=== PATIENT | female | born 1970 | race Caucasian/White ===

== ENCOUNTER → 2021-08-17 09:55 | Outpatient (BNVA) | payer SELFPAY | PROVIDERS: Visit Provider Nurse Practitioner Family | DX: I10 Essential (primary) hypertension (principal); R73.03 Prediabetes; W57.XXXA Bitten or stung by nonvenomous insect and other nonvenomous arthropods, initial encounter; S91.309A Unspecified open wound, unspecified foot, initial encounter; Z12.39 Encounter for other screening for malignant neoplasm of breast | CPT/HCPCS: 80053; 80061; 83036; 84443; 85025 ==